=== PATIENT | female | born 1965 | race Caucasian/White ===

== ENCOUNTER → 2018-01-07 | Outpatient (CLI) | payer OTHER ==
[~2018-01-07] MED LIST: 1-ME1LIQ PO; ALPR.25 PO; CLON-352 PO; HYDR-2768 PO; NAPR-729 PO
--- NOTE | 2018-01-11 09:34 | RSPPFT ---
DATE OF PROCEDURE: 01/07/18 COMMENTS: Spirometry shows FVC of 3.6 at 109% of predicted, FEV1 of 2.8 at 106%, FEV1/FVC ratio is normal. Flow is normal at FEF 25, FEF 50, FEF 75 and FEF 25-75. There is no response after bronchodilator treatment. Lung volumes show residual volume is normal. TLC is normal. Diffusion capacity is normal. Flow volume loop indicates a normal pattern. IMPRESSION: 1. Normal spirometry. 2. No response after bronchodilator treatment. 3. Normal lung volumes. 4. Normal diffusion capacity.
== END ==
LOC: HRSP 10:51
PROVIDERS: ATTEND Specialist
DX: R06.00 Dyspnea, unspecified (principal)
CPT/HCPCS: 94060; 94726; 94729

== ENCOUNTER 2018-05-25 05:08 | Inpatient (IN) ==
[2018-05-25] MEDS ORDERED: Chlorhexidine Gluconate 2% 1 Pack (2 Cloths) TOPICAL ONE (05:32)
[2018-05-25] MEDS ORDERED: Metoprolol Tartrate 25 MG Tablet PO ONE (05:32)
[2018-05-25] MEDS ORDERED: ceFAZolin 2 GM IV; once IV.SIG PRN (05:35)
[2018-05-25] MEDS ORDERED: Scopalamine 1.5 MG Patch T-DERMAL PRN (05:40)
[2018-05-25] MEDS ORDERED: Sodium Chlor 0.9% Inj 500 ML IV.SIG SCH (06:00)
[2018-05-25] MEDS ORDERED: Bupivacaine/Epinephrine PF Inj 0.25% 10 ML Vial ONE (10:11)
[2018-05-25] MEDS ORDERED: Bupivacaine/Epinephrine Inj 0.25% 50 ML Vial ONE (10:14)
[2018-05-25] MEDS ORDERED: Lidocaine PF 1% Inj 5 ML Syringe OTHER ONE (12:39)
[2018-05-25] MEDS ORDERED: Glycopyrrolate Inj 1 MG/5 ML Syringe IV.PUSH ONE (12:39)
[2018-05-25] MEDS ORDERED: Sugammadex Inj 200 MG/2 ML Vial IV.PUSH ONE (14:51)
[2018-05-25] MEDS ORDERED: diphenhydrAMINE HCl 12.5 MG/5 ML Elixir UDC PO PRN (15:18)
[2018-05-25] MEDS ORDERED: Post-op Orders (for Pharmacy) OTHER STA (15:18)
--- NOTE | 2018-05-25 15:22 | P.OP ---
- Preoperative Diagnosis (1) Morbid obesity with BMI of 40.0-44.9, adult - Postoperative Diagnosis (1) Morbid obesity with BMI of 40.0-44.9, adult Procedure: lap rny gastric bypass Anesthesia: GETA Surgeon: Hawk Arceo MD Pathology: none sent Operation and Findings: no leak with methylene blue
[2018-05-25] MEDS ORDERED: fentaNYL Citrate Inj 100 MCG/2 ML Ampul ONE (15:28)
[2018-05-25] MEDS ORDERED: KCL 20 mEq/D5W/NaCl 0.45% Inj 1,000 ML ONE (15:34)
[2018-05-25] MEDS ORDERED: *morphine SULFATE 4 MG/ML PERIprocedure ONLY ONE (15:34)
[2018-05-25] MEDS ORDERED: *morphine SULFATE 10 MG/ML PERIprocedure ONLY ONE ×2 (15:40→15:49)
[2018-05-25] MEDS: KCL 20 mEq/D5W/NaCl 0.45% Inj 1,000 ML IV.CONT SCH ×2 (15:54→23:35)
--- NOTE | 2018-05-25 16:23 | MP ---
cc: Hawk Arceo MD DATE OF OPERATION: 05/25/2018 PREOPERATIVE DIAGNOSES: Morbid obesity, body mass index of 41, hypertension, hypercholesterolemia, chronic kidney disease, sleep apnea, hiatal hernia. POSTOPERATIVE DIAGNOSES: Morbid obesity, body mass index of 41, hypertension, hypercholesterolemia, chronic kidney disease, sleep apnea, hiatal hernia. PROCEDURE PERFORMED: Laparoscopic Keyon-en-Y gastric bypass, 40 cm [place] limb, 100 cm biliopancreatic limb, repair of hiatal hernia. SURGEON: Hawk Arceo MD. COMPENSATION PROGRAMS MANAGER: Hayder Grove MD. Dr. Grove was needed due to the complexity of the case. Dr. Campbell assisted with camera control and retraction. ANESTHESIA: GETA. IV FLUIDS: See anesthesia sheet. ESTIMATED BLOOD LOSS: 10 mL. DRAINS: None. COMPLICATIONS: None. WOUND CLASSIFICATION: Clean/contaminated. FINDINGS: No leak on methylene blue. Good hemostasis. SPECIMENS: None. INDICATIONS: The patient is a 52-year-old female with multiple medical issues and comorbidities including morbid obesity, body mass index of 41, hypertension, sleep apnea, hypercholesteremia. Patient had multiple attempts at weight loss without success. Decision for bariatric surgery. DESCRIPTION OF THE PROCEDURE: The patient was taken to the operating suite, placed in supine position. She was prepped and draped in the usual sterile fashion after direct induction of general endotracheal anesthesia. A brief timeout done citing correct patient, procedure, surgical site. We were all in agreement with this. Attention was first directed to midline 18 cm from the xiphoid. Local anesthetic injected. A 5 mm incision was made just off the midline to the left. A 5 mm Optiview port was done under direct vision. Induction of pneumoperitoneum was done to 15 mm. On cursory inspection, no evidence of injury. Several other trocars were placed, 1 right upper quadrant 5 mm trocar for liver retraction, followed by 12 mm right lower quadrant trocar, followed by a 12 mm left lower port, followed by a 5 mm left upper port. All placed under direct vision, all local injected. Next, attention was directed to the omentum. The electro Bovie cautery was used. Harmonic scalpel to split the omentum from the transverse colon near the hepatic flexure to the splenic flexure. A splint was created in the omentum. Next, the ligament of Treitz was identified. The bowel was walked 40 cm distal to this. The small bowel was divided using Endo-KOSTAS Christiana stapler with SeamGuard. A clip was placed to siobhan the proximal limb. The distal limb was further walked a distance of 100 cm distally. Enterotomies were created to the antimesenteric border of the biliopancreatic limb and Keyon limb. This was done in order to fashion the jejunojejunostomy. Linear KOSTAS stapler was used to create a efzvaai-vqe-ymhntge layer. This was done in gvif-aq-[id number] stapling manner. Next, a common enterotomy was grasped and another Endo-KOSTAS stapler was used to approximate an open conjoined enterotomy. Small clips were placed for hemostasis. Next, using a 2-0 silk, a redundant portion of the bowel was sutured in the Lapra-Ty place. Once we finished this, the patient was placed in reverse Trendelenburg, airplaned to the left. Krys-Flex retractor was put in place. Left lobe of the liver was retracted. The angle of His was bluntly taken down with Harmonic scalpel. A 5 mm port at the midline. This was done approximately 5 cm from the GE junction on the lesser curve. The lesser sac was bluntly dissected to be entered. On doing this, it was noted that the posterior stomach was somewhat tenuous. Linear KOSTAS stapler was used to transect a horizontally blue load. We confirmed no NG tube or probes were in place. Further pouch was created by heading cephalad and one single fire of the blue load Endo-KOSTAS stapler was done near the angle of His. This completely divided the stomach, creating the pouch. Next, the gastric remnant was inspected. The staple line to this again was noted to be a little bit tenuous. Therefore, a 2-0 Vicryl suture was used to imbricate over on the staple line. Next, enterotomy was done gastrotomy using hook electrocautery. The enterotomy was done to the Keyon limb on the jejunal side as well. The Endo-KOSTAS stapler was used to staple and approximate the jejunal limb to the gastric pouch, creating a gastrojejunostomy. This was done approximately 2.5 cm. Next, 2-0 Polysorb was used in a running fashion to approximate the enterotomy. Argillite through, the suture was cut and an 18-Vincentian OG tube was then advanced past the anastomosis. The defect was closed with a second running 2-0 Polysorb suture. These were tied together for a single layer. This was tested with methylene blue. No evidence of leaking. Next, a second layer was done running and imbricating the gastrojejunostomy, reinforcing the gastrojejunostomy. Next, Evicel was placed to the gastrojejunostomy and jejunojejunostomy. All staple lines were hemostatic. Next, the defect was closed to prevent internal hernias. This was done to the jejunojejunostomy with 2-0 Surgidac. Next, the 12 mm port sites were closed with 0 Vicryl on a suture passer. Following this, pneumoperitoneum was removed. All trocars were removed. The OG was removed and subcuticular sutures were done with 4-0 Monocryl at all port sites. A sterile dressing was placed. The patient tolerated the procedure well. There were no intraoperative complications. All lap and instrument counts were correct at the end of procedure. The patient was extubated and taken stable to PACU. Repair of hiatal hernia. The hiatus was noted to have a 2 cm hiatal hernia. The esophagus was mobilized and bluntly taken down to identify the left and right crura of the diaphragm. Once this was adequately done and good visualization, a 0 silk suture was done intracorporeally [id number] in order to reapproximate the crura and close the hiatal hernia defect. MD REENA Che/kasandra , 03:30 PM , 03:45 PM
[2018-05-25] MEDS: Enoxaparin Inj 40 MG/0.4 ML Syringe SQ SCH (19:06)
[2018-05-25] MEDS ORDERED: Naloxone Inj 0.4 MG/ML Vial IV.PUSH PRN (21:14)
[2018-05-25] MEDS ORDERED: Morphine Inj 30 MG/30 ML PCA.VIAL PCA PRN (21:14)
[2018-05-26] MEDS: Acetaminophen-HYDROcodone 325/7.5 Liq 15 ML UDC PO PRN ×4 (00:36→18:40)
[2018-05-26 05:01] LABS: Hematocrit 33.1 % (35.0-46.0); Hemoglobin 11.3 gm/dL (11.6-15.3); Lymph # (Auto) 0.6 th/mm3 (1.0-4.8); Lymph % (Auto) 4.6 % (9.0-44.0); Mean Corpuscular Hemoglobin 28.5 pg (27.0-34.0); Mean Corpuscular Volume 83.8 fL (80.0-100.0); Mean Platelet Volume 8.5 fL (7.0-11.0); Mono # (Auto) 0.6 th/mm3 (0.0-0.9); Mono % (Auto) 4.4 % (0.0-8.0); Platelet Count 232 th/mm3 (150-450); Red Blood Count 3.95 mil/mm3 (4.00-5.30); Red Cell Distribution Width 14.3 % (11.6-17.2); White Blood Count 13.1 th/mm3 (4.0-11.0)
[2018-05-26 05:19] LABS: Calcium 8.2 mg/dL (8.5-10.1); Carbon Dioxide 25.6 meq/L (21.0-32.0); Magnesium 2.2 mg/dL (1.5-2.5); Potassium 4.3 meq/L (3.5-5.1)
[2018-05-26] MEDS: KCL 20 mEq/D5W/NaCl 0.45% Inj 1,000 ML IV.CONT SCH ×4 (10:00→23:18)
--- NOTE | 2018-05-26 16:18 | P.PNGS ---
Subjective Patient reports: tolerating liquids well (Pt denies chest pain, palpitations or SOB; nausea and pain are well controlled.) Physical Exam Vital signs: Vital Signs 05/25/18 16:15 05/25/18 17:07 05/25/18 20:00 Temperature 98.3 F 97.7 F 98.2 F Pulse Rate 80 79 73 Respiratory Rate 14 15 17 Blood Pressure 136/62 130/60 121/28 L Pulse Oximetry 93 L 94 L 92 L 05/25/18 21:32 05/26/18 00:00 05/26/18 04:00 Temperature 97.8 F 97.8 F Pulse Rate 73 69 Respiratory Rate 17 17 Blood Pressure 108/55 L 117/59 L Pulse Oximetry 97 94 L 91 L 05/26/18 08:00 05/26/18 11:10 05/26/18 12:00 Temperature 97.3 F L 97.8 F Pulse Rate 68 56 L Respiratory Rate 18 16 Blood Pressure 117/58 L 115/64 Pulse Oximetry 94 L 95 98 05/26/18 16:00 Temperature 98.3 F Pulse Rate 61 Respiratory Rate 18 Blood Pressure 148/69 H Pulse Oximetry 94 L Intake & Output 05/25/18 05/26/18 05/26/18 18:59 06:59 18:59 Intake Total 1502 / 1502 1788 / 1788 1300 / 1300 Output Total 30 / 30 Balance 1472 / 1472 1788 / 1788 1300 / 1300 Weight 111.6 kg 113.8 kg Intake: IV 302 / 302 1548 / 1548 1300 / 1300 D5W/1/2NS + KCL 20 mEq Inj 1, 52 / 52 948 / 948 1000 / 1000 000 ML @ 125 mls/hr IV.CONT . Q8H [facility] Rx#:[id number] Ofirmev Inj 1,000 mg In 100 ml 100 / 100 200 / 200 100 / 100 @ 400 mls/hr IV.SIG Q6H [facility] Rx# :[id number] Ancef Inj 1,000 MG In NS Inj 200 / 200 100 / 100 100 ML @ 200 mls/hr IV.SIG Q8H [facility] Rx#:[id number] Flagyl 500 MG Inj 100 ML @ 200 200 / 200 mls/hr IV.SIG Q8H [facility] Rx#: [id number] Oral 0 / 0 240 / 240 Anesthesia Amount 1200 / 1200 Output: Urine 0 / 0 Estimated Blood Loss 30 / 30 Other: # Voids 1 - Routine Respiratory Exam Present: CTA bilaterally - Routine Cardiovascular Exam Present: RRR, S1, S2 - Routine Abdominal Exam Present: soft Comments: normal post operative tenderness, laproscopic sites C/D/I - Routine Neurological Exam Present: oriented X3 Results - Labs 05/26/18 03:50 05/26/18 03:50 Laboratory Results - last 24 hr 05/26/18 05/26/18 03:50 03:50 WBC 13.1 H RBC 3.95 L Hgb 11.3 L Hct 33.1 L MCV 83.8 MCH 28.5 MCHC 34.0 RDW 14.3 Plt Count 232 MPV 8.5 Neut % (Auto) 91.0 H Lymph % (Auto) 4.6 L [place] % (Auto) 4.4 Eos % (Auto) 0.0 Baso % (Auto) 0.0 Neut # (Auto) 12.0 H Lymph # (Auto) 0.6 L [place] # (Auto) 0.6 Eos # (Auto) 0.0 Baso # (Auto) 0.0 WBC Differential . Differential Comment Auto diff final Sodium 143 Potassium 4.3 Chloride 107 Carbon Dioxide 25.6 Anion Gap 10 BUN 16 Creatinine 1.01 H Estimated GFR 57 L Random Glucose 151 H Calcium 8.2 L Magnesium 2.2 Assessment and Plan - Plan POD #1 laproscopic RNY Tolerating fluids well minimal nausea and pain well controlled. Ambulate ad anjel/ IS D/c IVF PO pain medication Anticipate D/C home today if doing well Normal post operative elevation in WBC's no red flag symptoms. Code Status: full Discussed Condition With: patient and spouse Discharge Planning: D/C home today in afternoon if doing well
[2018-05-26] MEDS: Enoxaparin Inj 40 MG/0.4 ML Syringe SQ SCH (21:15)
[2018-05-27] MEDS: Acetaminophen-HYDROcodone 325/7.5 Liq 15 ML UDC PO PRN ×3 (02:15→14:36)
[2018-05-27] MEDS: KCL 20 mEq/D5W/NaCl 0.45% Inj 1,000 ML IV.CONT SCH ×2 (07:45→15:34)
[2018-05-27 13:03] VITALS: BP 130/64; PULSE 66; RESP 18; TEMP 98.1; O2SAT 93
--- NOTE | 2018-05-27 16:53 | P.PNGS ---
Subjective Patient reports: feels better, pain is less, tolerating liquids well, voiding w/ o difficulty (Pt denies, SOB, palpitations or chest pain. Nausea and pain well controlled, no complaints overnight.) Physical Exam Vital signs: Vital Signs 05/26/18 20:00 05/26/18 22:03 05/27/18 00:00 Temperature 98.2 F 98.2 F Pulse Rate 63 62 Respiratory Rate 16 20 17 Blood Pressure 126/69 125/68 Pulse Oximetry 94 L 95 05/27/18 03:50 05/27/18 08:00 05/27/18 12:00 Temperature 98.0 F 98.1 F Pulse Rate 64 66 Respiratory Rate 20 17 18 Blood Pressure 113/56 L 130/64 Pulse Oximetry 92 L 93 L Intake & Output 05/26/18 05/27/18 05/27/18 18:59 06:59 18:59 Intake Total 2760 / 2760 1448 / 1448 Balance 2760 / 2760 1448 / 1448 Weight 114.9 kg Intake: IV 2760 / 2760 948 / 948 D5W/1/2NS + KCL 20 mEq Inj 1999 / 1999 948 / 948 000 ML @ 125 mls/hr IV.CONT . Q8H [facility] Rx#:[id number] Ofirmev Inj 1,000 mg In 100 ml 100 / 100 @ 400 mls/hr IV.SIG Q6H [facility] Rx# :[id number] Ancef Inj 1,000 MG In NS Inj 100 / 100 100 ML @ 200 mls/hr IV.SIG Q8H [facility] Rx#:[id number] Flagyl 500 MG Inj 100 ML @ 200 100 / 100 mls/hr IV.SIG Q8H [facility] Rx#: [id number] Oral 500 / 500 Other: # Voids 4 1 - Constitutional no acute distress - Routine Neck Exam Present: supple - Routine Respiratory Exam Present: CTA bilaterally - Routine Cardiovascular Exam Present: RRR, S1, S2 - Routine Abdominal Exam Present: soft, normoactive bowel sounds Comments: normal post operative tenderness, incision sites C/D/I Results - Labs 05/26/18 03:50 05/26/18 03:50 Assessment and Plan - Plan POD #2 laproscopic RNY Tolerating full liquid well Nausea and pain well controlled with oral meds. Ambulateing without difficulty D/c IVF D/C home today. Code Status: full Discussed Condition With: patient and Discharge Planning: D/C home today
== END 2018-05-27 17:29 | disposition home or self-care (01) ==
LOC: HSDI 05:08 → N07 16:39
PROVIDERS: ADMIT Surgery; ATTEND Surgery